=== PATIENT | male | born 1995 | race Caucasian/White ===

== ENCOUNTER 2020-01-04 07:30 | Day surgery (SDC) | payer BC, OTHER ==
[~2020-01-04] VITALS: Ht 167.6 cm; Wt 68.2 kg
[~2020-01-04 07:30] MED LIST: ACETAMINOPHEN 325 MG TABLET PO PRN; EPHEDRINE 50 MG/ML, 1ML IVPush PRN; FENTANYL PF 100 MCG/2ML IV PRN; HYDROmorphone 1 MG/ML, 1ML INJ IVPush PRN; KETOROLAC 30 MG/1 ML IVPush PRN; LABETALOL 5MG/ML, 20ML IV PRN; LORazepam 2 MG/ML, 1ML IVPush PRN; MEPERIDINE/PF 25MG/0.5ML IVPush PRN; METHOCARBAMOL 1,000 MG in DEXTROSE 5% 100 ML IV PRN; METOPROLOL 1 MG/ML, 5ML IV PRN; OXYcodone 5 MG/5 ML ORAL.SOL UDC PO PRN; PROMETHAZINE 12.5 MG SUPP PR PRN
[2020-01-04 07:56] VITALS: BP 115/83
[2020-01-04] MEDS ORDERED: NONE PER PT (07:59)
[2020-01-04] MEDS ORDERED: CHLORHEXIDINE 15 ML UDC ONE (08:01)
[2020-01-04] MEDS ORDERED: LIDOCAINE-MPF 1%, 2ML ONE (08:01)
[2020-01-04] MEDS ORDERED: LACTATED RINGERS 1,000 ML IV SCH (08:24)
[2020-01-04] MEDS ORDERED: CHLORHEXIDINE 15 ML UDC MM ONE (08:30)
[2020-01-04] MEDS ORDERED: LIDOCAINE-MPF 1%, 2ML INFIL ONE (08:30)
[2020-01-04] MEDS ORDERED: FENTANYL PF 250 MCG/5ML ONE (09:20)
[2020-01-04] MEDS ORDERED: MIDAZOLAM 1 MG/ML, 2ML ONE (09:20)
[2020-01-04] MEDS ORDERED: GLYCOPYRROLATE 0.2MG/1ML, 5ML ONE (09:34)
[2020-01-04] MEDS ORDERED: CEFAZOLIN 1,000 MG ONE (09:34)
[2020-01-04] MEDS ORDERED: SUCCINYLCHOLINE 20 MG/ML, 10ML ONE (09:34)
[2020-01-04] MEDS ORDERED: DEXAMETHASONE 4 MG/ML, 1ML ONE (09:34)
[2020-01-04] MEDS ORDERED: ONDANSETRON 2MG/ML, 2ML ONE (09:34)
[2020-01-04] MEDS ORDERED: NEOSTIGMINE 1 MG/ML, 10ML ONE (09:34)
[2020-01-04] MEDS ORDERED: PROPOFOL 10 MG/ML, 20ML ONE (09:34)
[2020-01-04] MEDS ORDERED: MEPERIDINE/PF 25MG/ML,1ML ONE (10:15)
[2020-01-04] MEDS ORDERED: OXYcodone 5 MG/5 ML ORAL.SOL UDC ONE (10:29)
[2020-01-04] MEDS ORDERED: ACETAMINOPHEN 650 MG/20.3 ML UDC ONE (10:29)
== END 2020-01-04 12:15 | disposition home or self-care (01) ==
LOC: OUT 07:30
PROVIDERS: ATTEND Otolaryngology
DX: J35.01 Chronic tonsillitis (principal); F12.90 Cannabis use, unspecified, uncomplicated; Z91.018 Allergy to other foods; Z72.89 Other problems related to lifestyle; Z20.828 Contact with and (suspected) exposure to other viral communicable diseases
CPT/HCPCS: 36415; 42826; 87635; 88304; J0330; J0690; J1100; J2175; J2250; J2405; J2704; J3010; J7120; J2710